=== PATIENT | male | born 1975 | race Caucasian/White ===

== ENCOUNTER → 2016-10-05 | Outpatient (CLI) | payer OTHER ==
[~2016-10-05] MED LIST: ATEN1TAB73
[2016-10-05 08:45] LABS: MEAN CELL VOLUME 94.6 FL (80.0-100.0); MEAN CORPUSCULAR HEMOGLOBIN 32.7 PG (27.0-34.0); MEAN CORPUSCULAR HGB CONC 34.6 % (32.0-36.0); PLATELET COUNT 254 TH/MM3 (150-450); RED BLOOD COUNT 4.65 MIL/MM3 (4.50-5.90); RED CELL DISTRIBUTION WIDTH 12.9 % (11.6-17.2); REVIEW FLAG FINAL; WHITE BLOOD COUNT 7.6 TH/MM3 (4.0-11.0)
[2016-10-05 09:17] LABS: BICARBONATE 25.3 MEQ/L (21.0-32.0); POTASSIUM 3.5 MEQ/L (3.5-5.1)
[2016-10-05 09:22] LABS: HDL CHOLESTEROL 41.8 MG/DL (40.0-60.0); INDIRECT BILIRUBIN 0.3 MG/DL (0.0-0.8); TOTAL BILIRUBIN ADULT 0.4 MG/DL (0.2-1.0)
== END ==
LOC: CLAB 08:19
PROVIDERS: ATTEND Family Medicine
DX: E78.2 Mixed hyperlipidemia (principal); I10 Essential (primary) hypertension; Z79.899 Other long term (current) drug therapy
CPT/HCPCS: 36415; 80048; 80061; 80076; 85027

== ENCOUNTER 2017-03-10 10:59 | Emergency (ER) | payer OTHER ==
[~2017-03-10] VITALS: Ht 172.7 cm; Wt 81.0 kg
[2017-03-10 11:01] VITALS: BP 158/102; PULSE 120; RESP 22; TEMP 100.2; O2SAT 98
--- NOTE | 2017-03-10 11:34 | PD ---
Physical Exam Time Seen by Provider: 11:32 Narrative 41yo M c/o fever, cough, body aches, nasal congestion, nosebleeds, headache, chest tightness. Denies SOB. TMAX 103.0. Denies sore throat, vomiting, diarrhea, abd pain. +Flu vaccination. Patient seen in triage. VS reviewed. Awaiting bed placement. See next providers note for final patient disposition. Data Data Last Documented VS Vital Signs Date Time Temp Pulse Resp B/P (MAP) Pulse Ox O2 Delivery O2 Flow Rate FiO2 03/10/17 11:01 100.2 120 22 158/102 (120) 98 Room Air MDM Supervised Visit with KAVITA: Melissa Oliver Mar 10, 2017 11:34
[2017-03-10 11:35] VITALS: PULSE 112
--- NOTE | 2017-03-10 12:51 | RADRPT ---
EXAM DATE/TIME: 03/10/2017 12:38 [place] COMPARISON: No previous studies available for comparison. INDICATIONS : Fever, congestion MEDICAL HISTORY : None. SURGICAL HISTORY : None. ENCOUNTER: Initial ACUITY: 3 days PAIN SCORE: 0/10 LOCATION: Bilateral chest FINDINGS: Single AP view of the chest. The lungs are clear. Cardiomediastinal silhouette within normal limits. No evidence of pleural effusion or pneumothorax. CONCLUSION: No acute cardiopulmonary disease identified. Ollie Cisneros MD on March 10, 2017 at 12:48 Board Certified Radiologist. This report was verified electronically.
[2017-03-10] MEDS ORDERED: PRED5TAB PO (12:55)
--- NOTE | 2017-03-10 12:55 | PD ---
HPI Chief Complaint: Cold / Flu Symptoms Time Seen by Provider: 12:43 Travel History International Travel<30 days: No Contact w/Intl Traveler<30days: No Traveled to known affect area: No History of Present Illness HPI 41-year-old male presents to emergency department complaining of intermittent fever, nonproductive cough, body aches since . Patient states that he has used [id number]-[id number]-rlyoepv medication such as NyQuil and his fever has been reduced. Patient denies shortness of breath. Denies nausea or vomiting or diarrhea. States he has also been developing mild pain behind the eyes with pressure in his nasal cavities. States he has also developed irritation of the skin. Patient states that his family has a history of significant allergies and some of the symptoms may be related to allergies. [facility] Past Medical History High Cholesterol: Yes Hypertension: Yes Past Surgical History Tonsillectomy: Yes Social History Alcohol Use: Yes (OCCASIONAL) Tobacco Use: No Allergies-Medications (Allergen,Severity, Reaction): Coded Allergies: No Known Allergies (Verified Allergy, Mild, 03/10/17) Reported Meds & Prescriptions Reported Meds & Active Scripts Active Prednisone 5 Mg Tab 5 Mg PO DAILY 7 Days Reported Tenormin (Atenolol) 25 Mg Tab Review of Systems Except as stated in HPI: all other systems reviewed are Neg Physical Exam Narrative GENERAL: Well-developed, nourished and apparent distress, speaking in a nasal tone, dry cough SKIN: Focused skin assessment warm/dry. HEAD: Atraumatic. Normocephalic. EYES: Pupils equal and round. No scleral icterus. No injection or drainage. ENT: Clear nasal discharge. Mucous membranes pink and moist. NECK: Trachea midline. No JVD. No lymphadenopathy CARDIOVASCULAR: Regular rate and rhythm. No murmur appreciated. RESPIRATORY: No accessory muscle use. Clear to auscultation. Breath sounds equal bilaterally. MUSCULOSKELETAL: No obvious deformities. No clubbing. No cyanosis. No edema. NEUROLOGICAL: Awake and alert. No obvious cranial nerve deficits. Motor grossly within normal limits. Normal speech. PSYCHIATRIC: Appropriate mood and affect; insight and judgment normal. Data Data Last Documented VS Vital Signs Date Time Temp Pulse Resp B/P (MAP) Pulse Ox O2 Delivery O2 Flow Rate FiO2 03/10/17 13:04 03/10/17 11:35 112 03/10/17 11:01 100.2 22 98 Room Air Orders Orders Influenzae A/B Antigen (03/10/17 11:34) Chest, Single Ap (03/10/17 12:21) Ed Discharge Order (03/10/17 13:00) [facility] Medical Decision Making Medical Screen Exam Complete: Yes Emergency Medical Condition: Yes Differential Diagnosis Upper respiratory infection, common cold, viral syndrome, Narrative Course 41-year-old male presents to emergency department complaining of intermittent fever, nonproductive cough, body aches since . Patient states that he has used [id number]-ijq-[id number] medication such as NyQuil and his fever has been reduced. Patient denies shortness of breath. Denies nausea or vomiting or diarrhea. States he has also been developing mild pain behind the eyes with pressure in his nasal cavities. States he has also developed irritation of the skin. Patient states that his family has a history of significant allergies and some of the symptoms may be related to allergies. Vital signs stable, mild tachycardia. Physical exam findings consistent with an upper respiratory infection. Scant clear rhinorrhea, occasional cough, lungs clear. Influenza negative. Chest x-ray without acute process. Patient states that he does likely have allergies as the rest of his family has allergies. We'll do suspect the majority of his symptoms are viral related, advised to try a low-dose of prednisone for his developing sinus tenderness and possible allergic component. Advised patient to follow up his primary care physician within one week, sooner if worsening symptoms. Advised patient to have an adequate fluid intake with nutritious diet. Patient to return to the ED worsening or persistent symptoms. Diagnosis Primary Impression: Viral syndrome Referrals: Primary Care Physician Additional Instructions: Take all medication as prescribed. Consider taking Melissa, Zyrtec, or Claritin for potential allergy symptoms. Ensure an adequate fluid intake and nutrition diet. Scripts Prednisone (Prednisone) 5 Mg Tab 5 MG PO DAILY for 7 Days, #7 TAB 0 Refills Prov: Danelle Johnston 03/10/17 Disposition: 01 DISCHARGE HOME Condition: Stable Danelle Jhonston Mar 10, 2017 12:55
== END 2017-03-10 13:16 | disposition home or self-care (01) ==
LOC: NEPK 10:59
DX: B34.9 Viral infection, unspecified (principal); Z79.899 Other long term (current) drug therapy
CPT/HCPCS: 71045; 87804; 99284